=== PATIENT | female | born 1985 | race Caucasian/White ===

== ENCOUNTER 2017-12-29 09:35 | Emergency (ER) | payer OTHER, SELFPAY ==
--- NOTE | 2017-12-29 09:57 | ER ---
Nurse's Notes [facility] Name: Arelis Elizondo Age: 32 yrs Sex: Female : 1985 Arrival Date: 12/29/2017 Time: 09:38 Bed 14 Private MD: None, None Diagnosis: Acute pharyngitis Presentation: 12/29 09:44 Presenting complaint: Patient states: daughter tested positive for strep on Tuesday, iw started having sore throat, fever on Tuesday. Transition of care: patient was not received from another setting of care. Onset of symptoms was December 27, 2017. Risk Assessment: Do you want to hurt yourself or someone else? Patient reports no desire to harm self or others. Initial Sepsis Screen: Does the patient meet any 2 criteria? No. Patient's initial sepsis screen is negative. Does the patient have a suspected source of infection? No. Patient's initial sepsis screen is negative. Care prior to arrival: None. 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 - Social history:: Smoking status: Patient uses tobacco products, smokes one-half pack cigarettes per day. - Ebola Screening: : Patient negative for fever greater than or equal to 101.5 degrees Fahrenheit, and additional compatible Ebola Virus Disease symptoms Patient denies exposure to infectious person Patient denies travel to an Ebola-affected area in the 21 days before illness onset No symptoms or risks identified at this time. Screenin:45 Abuse screen: Denies threats or abuse. Denies injuries from another. Nutritional jl7 screening: No deficits noted. Tuberculosis screening: No symptoms or risk factors identified. Fall Risk None identified. Assessment: 09:45 General: Appears in no apparent distress. uncomfortable, Behavior is calm, cooperative, jl7 appropriate for age. Pain: Complains of pain in sore throat. Neuro: Level of Consciousness is awake, alert, obeys commands. Cardiovascular: Patient's skin is warm and dry. Respiratory: Airway is patent Respiratory effort is even, unlabored, Breath sounds are clear bilaterally. EENT: Throat is reddened. Derm: Skin is pink, warm \T\ dry. Vital Signs: 09:48 BP 123 / 86; Pulse 97; Resp 16; Temp 98.2; Pulse Ox 99% on R/A; Weight 54.43 kg; Height iw 5 ft. 5 in. (165.10 cm); Pain 3/10; 09:48 Body Mass Index 19.97 (54.43 kg, 165.10 cm) ED Course: 09:38 Patient arrived in ED. mr 09:38 None, None is Private Physician. mr 09:43 Gualberto Gaona PA is PHCP. jr8 09:43 Pepito Roque MD is Attending Physician. jr8 09:44 Saida Nicholson, RN is Primary Nurse. jl7 09:47 Triage completed. iw 09:48 Arm band placed on. iw 09:50 Patient has correct armband on for positive identification. Placed in gown. Bed in low jl7 position. Call light in reach. Side rails up X 1. 09:50 Strep swab sent to lab. jl7 10:02 No provider procedures requiring assistance completed. Patient did not have IV access jl7 during this emergency room visit. Administered Medications: No medications were administered Outcome: 09:56 Discharge ordered by . jr8 10:02 Discharged to home ambulatory. jl7 10:02 Condition: stable 10:02 Discharge instructions given to patient, family, Instructed on discharge instructions, follow up and referral plans. medication usage, Demonstrated understanding of instructions, follow-up care, medications, Prescriptions given X 1. 10:03 Patient left the ED. jl7 Signatures: Aggie George Criss Murray, RN RN iw Gualberto Gaona PA PA jr8 Saida Nicholson RN RN jl7
--- NOTE | 2017-12-29 09:57 | EDPHYS ---
Physician Documentation [facility] Name: Arelis Elizondo Age: 32 yrs Sex: Female : 1985 Arrival Date: 12/29/2017 Time: 09:38 Bed 14 Private MD: None, None ED Physician Pepito Roque HPI: 12/29 09:54 This 32 yrs old Female presents to ER via Ambulatory with complaints of Sore jr8 Throat. 09:54 The patient presents with sore throat. The patient describes throat pain as constant. jr8 Onset: The symptoms/episode began/occurred acutely, yesterday. Severity of symptoms: At their worst the symptoms were moderate, in the emergency department the symptoms are unchanged. Modifying factors: The symptoms are alleviated by nothing, the symptoms are aggravated by nothing, The patient has had contact with sick daughter. Associated signs and symptoms: Pertinent positives: fever. The patient has not experienced similar symptoms in the past. The patient has not recently seen a physician. Daughter recently diagnosed with strep throat. Now having both fevers and sore throat. No other s/s . 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 - Social history:: Smoking status: Patient uses tobacco products, smokes one-half pack cigarettes per day. - Ebola Screening: : Patient negative for fever greater than or equal to 101.5 degrees Fahrenheit, and additional compatible Ebola Virus Disease symptoms Patient denies exposure to infectious person Patient denies travel to an Ebola-affected area in the 21 days before illness onset No symptoms or risks identified at this time. ROS: 09:54 Eyes: Negative for injury, pain, redness, and discharge, Neck: Negative for injury, jr8 pain, and swelling, Cardiovascular: Negative for chest pain, palpitations, and edema, Respiratory: Negative for shortness of breath, cough, wheezing, and pleuritic chest pain, Back: Negative for injury and pain, MS/Extremity: Negative for injury and deformity, Skin: Negative for injury, rash, and discoloration, Neuro: Negative for headache, weakness, numbness, tingling, and seizure. 09:54 Constitutional: Positive for fever. 09:54 ENT: Positive for sore throat, Negative for drainage from ear(s), ear pain, nasal discharge, rhinorrhea, sinus congestion, dental pain, difficulty swallowing, difficulty handling secretions. Exam: 09:54 Head/Face: Normocephalic, atraumatic. Eyes: Pupils equal round and reactive to light, jr8 extra-ocular motions intact. Lids and lashes normal. Conjunctiva and sclera are non-icteric and not injected. Cornea within normal limits. Periorbital areas with no swelling, redness, or edema. Neck: Trachea midline, no thyromegaly or masses palpated, and no cervical lymphadenopathy. Supple, full range of motion without nuchal rigidity, or vertebral point tenderness. No Meningismus. Cardiovascular: Regular rate and rhythm with a normal S1 and S2. No gallops, murmurs, or rubs. Normal PMI, no JVD. No pulse deficits. Respiratory: Lungs have equal breath sounds bilaterally, clear to auscultation and percussion. No rales, rhonchi or wheezes noted. No increased work of breathing, no retractions or nasal flaring. Abdomen/GI: Soft, non-tender, with normal bowel sounds. No distension or tympany. No guarding or rebound. No evidence of tenderness throughout. Back: No spinal tenderness. No costovertebral tenderness. Full range of motion. Skin: Warm, dry with normal turgor. Normal color with no rashes, no lesions, and no evidence of cellulitis. MS/ Extremity: Pulses equal, no cyanosis. Neurovascular intact. Full, normal range of motion. Neuro: Awake and alert, GCS 15, oriented to person, place, time, and situation. Cranial nerves II-XII grossly intact. Motor strength 5/5 in all extremities. Sensory grossly intact. Cerebellar exam normal. Normal gait. 09:54 ENT: Exam is negative for earache, ear discharge, TM abnormalities, nasal discharge, Posterior pharynx: Airway: patent, Tonsils: with erythema, with exudate, no ulcerations, Uvula: midline, non-edematous, no erythema, swelling, is not appreciated, erythema, that is mild. Vital Signs: 09:48 BP 123 / 86; Pulse 97; Resp 16; Temp 98.2; Pulse Ox 99% on R/A; Weight 54.43 kg; Height iw 5 ft. 5 in. (165.10 cm); Pain 3/10; 09:48 Body Mass Index 19.97 (54.43 kg, 165.10 cm) iw MDM: 09:43 Patient medically screened. jr8 09:54 Data reviewed: vital signs, nurses notes, lab test result(s). Data interpreted: Pulse jr8 oximetry: on room air is 99 %. Interpretation: normal. Counseling: I had a detailed discussion with the patient and/or guardian regarding: the historical points, exam findings, and any diagnostic results supporting the discharge/admit diagnosis, lab results, the need for outpatient follow up, a family practitioner, to return to the emergency department if symptoms worsen or persist or if there are any questions or concerns that arise at home. 12/29 09:45 Order name: Strep jl7 Administered Medications: No medications were administered Disposition: 10:34 Co-signature as Attending Physician, Pepito Roque MD I agree with the assessment and kdr plan of care. Disposition: 12/29/17 09:56 Discharged to Home. Impression: Acute pharyngitis. - Condition is Stable. - Discharge Instructions: Pharyngitis. - Prescriptions for Amoxicillin 875 mg Oral Tablet - take 1 tablet by ORAL route every 12 hours for 10 days; 20 tablet. - Medication Reconciliation Form, Thank You Letter, Antibiotic Education, Prescription Opioid Use, Work release form form. - Follow up: Private Physician; When: As needed; Reason: If symptoms return, Recheck today's complaints, Continuance of care, Re-evaluation by your physician. - Problem is new. - Symptoms have improved. Signatures: Dispatcher [employer] EDMA Pepito Roque MD MD [facility] Criss Murray RN RN iw Gualberto Gaona PA PA jr8 Saida Nicholson RN RN jl7 Corrections: (The following items were deleted from the chart) 10:03 09:56 12/29/2017 09:56 Discharged to Home. Impression: Acute pharyngitis. Condition is jl7 Stable. Forms are Medication Reconciliation Form, Thank You Letter, Antibiotic Education, Prescription Opioid Use. Follow up: Private Physician; When: As needed; Reason: If symptoms return, Recheck today's complaints, Continuance of care, Re-evaluation by your physician. Problem is new. Symptoms have improved. jr8
[2017-12-29 10:08] VITALS: BP 123/86; TEMP 98.2; O2SAT 99
== END 2017-12-29 10:03 | disposition home or self-care (01) ==
LOC: ER 09:35
DX: J02.9 Acute pharyngitis, unspecified (principal); F17.210 Nicotine dependence, cigarettes, uncomplicated
CPT/HCPCS: 87070; 87081; 99283